=== PATIENT | female | born 1935 | race Caucasian/White ===

== ENCOUNTER 2016-07-08 15:59 | Inpatient (IN) ==
--- NOTE | 2016-07-08 17:34 | Emergency Department Note ---
Disposition Clinical Impression: Hx of chronic kidney disease Anemia Qualifiers: Anemia type: unspecified type Qualified Code(s): D64.9 - Anemia, unspecified Altered mental status Qualifiers: Altered mental status type: unspecified Qualified Code(s): R41.82 - Altered mental status, unspecified Disposition: Admitted As Inpatient Condition: Fair Referrals: Jose Olson MD [Primary Care Provider] - Forms: Work/School Release, ED Satisfaction Letter Time of Disposition: 19:39 General Adult HPI - General Chief complaint: ED General Medical Stated complaint: LOW HGB Time Seen by Provider: 07/08/16 17:33 Source: patient Mode of arrival: ambulatory Limitations: no limitations Nursing Notes Reviewed: Yes Vital Signs Reviewed: Yes - History of Present Illness HPI Narrative: Patient is an 81-year-old female past history of hyperlipidemia, hypertension, dementia, anemia, stage IV kidney disease and follows with Dr. Leung. She presents today due to hemoglobin of 5.3 that was drawn today. Son is with her ( medical POA) and states that the patient receives multiple transfusions usually every 2-3 weeks. She currently follows with Dr. Leung for stage IV kidney disease, does not currently have dialysis. He states that she usually gets out. Patient transfusions. However, he was unable to get in today and states that this is one of the lowest Hgb she has had in the past. The patient herself is confused on exam. Son states that she gets this way when her hemoglobin is very low. She is not able to answer the majority of the review of system questions I asked. She does deny chest pain, denies shortness of breath. She does admit to some lower extremity swelling. Otherwise, she will not answer any other questions and keeps stating that she wants to go home. Pain Scale: 0 - Related Data Home Medications Medication Instructions Recorded Confirmed Amlodipine [Norvasc] 10 mg PO DAILY 01/10/16 06/03/16 Fenofibrate 160 mg PO DAILY 01/10/16 06/03/16 Melatonin 5 mg PO HS 01/10/16 06/03/16 Cholecalciferol (Vitamin D3) 50,000 unit PO QWEEK 03/21/16 06/03/16 [Vitamin D] Ondansetron ODT [Zofran ODT] 4 mg SL Q8H 05/02/16 06/03/16 Previous Rx's Medication Instructions Recorded Folic Acid 1 mg PO DAILY #90 tablet 03/26/16 Cyanocobalamin (B-12) [Vitamin B12] 1,000 mcg PO DAILY #90 tablet 06/17/16 Allergies Allergy/AdvReac Type Severity Reaction Status Date / Time lorazepam [From Ativan] Allergy Hallucinati Verified 06/03/16 10:20 ng Limitations: ROS unobtainable due to patients medical condition Cardiovascular: Denies: chest pain Respiratory: Denies: dyspnea Past Medical History - Past Medical History Attestation: Yes The following information was validated with the patient. 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 history - Social History Smoking Status: Former smoker Smokeless Tobacco Status: No Alcohol use: Reports: none Drug use: Reports: none Physical Exam - General Limitations: no limitations General appearance: alert - Head Head exam: atraumatic, normocephalic, normal inspection - Eye Eye exam: Present: normal appearance, PERRL, EOMI - ENT ENT exam: normal exam, mucous membranes moist - Neck Neck exam: Present: normal inspection, full ROM, trachea midline - Chest Chest inspection: Present: normal inspection, symmetric chest wall rise - Respiratory Respiratory exam: Present: normal lung sounds bilaterally - Cardiovascular Cardiovascular exam: Present: regular rate, normal rhythm, normal heart sounds - Abdominal Exam Abdominal exam: Present: soft, Non-Tender. Absent: tenderness, distention, guarding, rebound, rigidity - Extremities Exam Extremities exam: Present: full ROM, pedal edema (moderate bilateral LE edema, pitting; moderate RUE edema). Absent: tenderness - Neurological Exam Neurological exam: Present: alert, oriented X3 - Psychiatric Psychiatric exam: Present: normal affect, normal mood - Skin Skin exam: Present: warm, dry, intact, normal color Course Course Narrative: Patient blood pressure on presentation was 70s over 50s. We will give the patient 1 L normal saline bolus. Otherwise, the rest of her vitals were within normal limits. Patient was pale on exam, altered, was not able to answer most questions. Her son is the power of cotton buyer has agreed to transfusion for a hemoglobin of 5.3. She had a CBC drawn today but did not have any BMP, UA done today. We will obtain these labs and then admitted to the hospital for further care. 19:29 Consent for transfusion signed by patient, will transfuse 3 units. patient refusing urinalysis. Creatinine are baseline for the patient. EKG shows sinus rhythm with no acute ST changes. We will admit the patient for blood transfusion, anemia. Vital Signs Temperature 97.9 F 07/08/16 16:01 Pulse Rate 79 07/08/16 16:01 Respiratory Rate 22 07/08/16 16:01 Blood Pressure 71/48 07/08/16 16:01 O2 Sat by Pulse Oximetry 99 07/08/16 16:01 Temperature 97.9 F 07/08/16 16:01 Pulse Rate 79 07/08/16 17:07 Respiratory Rate 22 07/08/16 17:07 Blood Pressure 71/48 07/08/16 17:07 O2 Sat by Pulse Oximetry 99 07/08/16 17:07 Oxygen Delivery Oxygen Delivery Room Air Medical Decision Making - MDM Narrative Medical decision making narrative: Patient blood pressure on presentation was 70s over 50s. We will give the patient 1 L normal saline bolus. Otherwise, the rest of her vitals were within normal limits. Patient was pale on exam, altered, was not able to answer most questions. Her son is the power of cotton buyer has agreed to transfusion for a hemoglobin of 5.3. She had a CBC drawn today but did not have any BMP, UA done today. We will obtain these labs and then admitted to the hospital for further care. 19:29 Consent for transfusion signed by patient, will transfuse 3 units. patient refusing urinalysis. Creatinine are baseline for the patient. EKG shows sinus rhythm with no acute ST changes. We will admit the patient for blood transfusion, anemia. - Medical Records Medical records reviewed: Yes I reviewed the patient's medical records. - Lab Data Lab results reviewed: Yes I reviewed the patient's lab results. Result diagrams: 07/08/16 18:02 Lab Results 07/08/16 07/08/16 Range/Units 18:02 18:02 Sodium 143 (136-145) mEq/L Potassium 3.7 (3.5-4.5) mEq/L Chloride 115 H (98-109) mEq/L Carbon Dioxide 20 (19-29) mEq/L BUN 53 H (7-20) mg/dL Creatinine 2.67 H (0.57-1.11) mg/dL Est GFR ( Amer) 21 L (> 60) Est GFR (Non-Af Amer) 17 L (> 60) BUN/Creatinine Ratio 20 (6-26) Glucose 112 H (70-99) mg/dL Calculated Osmolality 311 H (280-300) Calcium 8.3 L (8.6-10.8) mg/dL Blood Type O NEGATIVE Antibody Screen NEGATIVE Crossmatch See Detail - EKG Data EKG #1 EKG attestation: Yes I reviewed and interpreted this EKG. EKG results narrative: 07/08/16 at 18:26. Normal sinus rhythm. Rate 82. AR 134. QRS 92. QTC 389. Normal axis. No acute ST elevation or depression. S.B.A.R. - S.B.A.R. Situation: Demographics, MOA Background: Presenting Complaint, Relevant PMH, Meds, & Allergies Assessment: Vital Signs, Course and respsone to treatment, Exam Concerns, Patient/Family Expectation, Pertinant Lab Results, Outstanding Labs Recommendation: Barrier(s) to disposition, Recommendation based on pending studies, treatments, or consults S.B.A.R. Report Given to: Dr Miller SAdiliaBAdiliaAJoselyn Repor Time: 19:39 Attestation Statement - Attestation Attestation: I examined this patient and my medical decision-making was reviewed with the ENGINEERING AID/PA/Advanced Practice Nurse/Resident Physician. I agree with the documented findings, disposition and treatment plan as described except to the extent set forth below.
[2016-07-08] MEDS ORDERED: 0.9 % Sodium Chloride 1,000 ML IVC ONE (17:59)
[2016-07-08 18:31] LABS: Calcium 8.3 mg/dL (8.6-10.8)
[2016-07-08 18:49] LABS: Potassium 3.7 mEq/L (3.5-4.5)
[2016-07-08] MEDS ORDERED: 0.9 % Sodium Chloride 250 ML ONE (20:12)
[2016-07-08] MEDS ORDERED: Naloxone 0.4 MG/ML INJ IVP PRN (21:10)
[2016-07-08] MEDS ORDERED: Ondansetron 4 MG/2 ML VIAL IVP PRN (21:12)
--- NOTE | 2016-07-08 23:25 | Internal Med History&Physical ---
Date of Encounter: 07/08/16 Time of Encounter: 22:50 Assessment and Plan (1) Symptomatic anemia Current visit: Yes Status: Acute patient with a history of iron deficiency anemia of unexplained etiology presumed to be from CKD, she has not had a recent colonoscopy per son, her daughter had colon cancer in her 50's, patient is being planned for a colonoscopy per son, she comes in with significant anemia with symptoms, we will transfuse 2 units of PRBC and follow blood counts and symptoms, target Hb is 7 in the absence of symptoms, should symptoms persist at a Hb of 7, we will transfuse one more unit (2) Hx of chronic kidney disease Current visit: Yes Status: Chronic stage 4 associated with anemia of chronic disease, 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, we will avoid nephrotoxins, renally dose all medications and follow BMP (3) HTN (hypertension) Current visit: Yes Status: Chronic on amlodipine at home, we will continue that Qualifiers: Hypertension type: essential hypertension Qualified Code(s): I10 - Essential (primary) hypertension (4) Dependent edema Current visit: Yes Status: Chronic patient has had significant history of anemia, she has recently developed dependent edema, this could be related to high output heart failure vs hypoalbuminemia vs CKD, we will check serum and urine proteins, 2D echo for further evaluation, will also do low dose lasix (5) Delirium Current visit: Yes Status: Acute patient is an elderly female, with multiple comorbidities who is also herd of hearing and reported to have dementia, these places her at risk for delirium, she was confused and agitated this evening when her son left, we will place her on the delirium protocol, sitter also ordered for safety Internal Medicine - H&P: HPI Chief complaint: sent here for abnormal blood counts Admitted From: Emergency Dept Plans for Post Hospital Care: Home History of present illness: Ms. Otoole is a 81 year old female with a long-standing history of stage IV CKD that is followed by Dr. Koroma and has a pre-existing diagnosis of anemia of CKD for which she has required multiple transfusions of PRBC to maintain her blood counts. Prior investigations has not yielded any clear culprit for her anemia with the exception of her CKD. Her last blood transfusion per son was about 3-4 weeks ago. She usually gets 2-3 PRBC's every 2 weeks and was in the office today to get her Aranesp injection but her blood counts at the time showed a Hb of 5.3 so she was sent to the ER for blood transfusion. She also complains of easy fatigability, dyspnea and dyspnea on exertion as well as reduced exercise tolerance, fatigue and lightheadedness. Past Medical History CKD stage 4 HTN DEPRESSION SMOKER KIDNEY STONES Surgical History VASCULAR SURGERY lung surgery for lung collapse/[place] Family History Father: Mother: Social history: Tobacco: Past smoker. 65 pack years. Quit one year ago. Alcohol:None Recreational drugs:None Marital Status: Occupation:Retired Living situation: Home with daughter. son is the POA and reports that patient is full code Past Med Surg Social Fam HX - Past Medical History Medical history: hyperlipidemia, hypertension, renal disease, other Psychiatric history: anxiety, depression - Social History Smoking Status: Former smoker Smokeless Tobacco Status: No Alcohol use: none Drug use: none - Family History Mother History Unknown: Yes Hx Family Cardiac Disorders: Yes Internal Medicine - H&P: Meds Amlodipine [Norvasc] 10 mg PO DAILY 01/10/16 [History] Fenofibrate 160 mg PO DAILY 01/10/16 [History] Melatonin 5 mg PO HS 01/10/16 [History] Cholecalciferol (Vitamin D3) [Vitamin D] 50,000 unit PO QWEEK 03/21/16 [History] Folic Acid 1 mg PO DAILY #90 tablet 03/26/16 [Rx] Ondansetron ODT [Zofran ODT] 4 mg SL Q8H PRN 05/02/16 [History] Cyanocobalamin (B-12) [Vitamin B12] 1,000 mcg PO DAILY #90 tablet 06/17/16 [Rx] Darbepoetin Christopher in Polysorbat [Aranesp] 200 mcg IJ Q2W 07/08/16 [History] Docusate [Colace] 100 mg PO DAILY PRN 07/08/16 [History] Mirtazapine [Mirtazapine] 7.5 mg PO HS 07/08/16 [History] Allergies lorazepam [From Ativan] Allergy (Verified 06/03/16 10:20) Hallucinating All Systems PM: A 10-system review of systems was performed and is negative for pertinent findings except as documented above in the HPI. - Constitutional Constitutional: as per HPI - EENT Eyes: as per HPI Ears: as per HPI Nose, mouth and throat: as per HPI - Cardiovascular Cardiovascular ROS IM: as per HPI - Respiratory Respiratory: as per HPI - Gastrointestinal Gastrointestinal: as per HPI - Genitourinary Genitourinary: as per HPI - Musculoskeletal Musculoskeletal ROS IM: as per HPI - Integumentary Integumentary IM: as per HPI - Constitutional Vitals: Temp Pulse Resp BP Pulse Ox 97.7 F 85 16 136/82 96 07/08/16 20:40 07/08/16 21:25 07/08/16 22:00 07/08/16 22:00 07/08/16 21:25 General General appearance: Elderly female, lying in bed, hard of hearing, seems confused, - Head Head exam: atraumatic, normocephalic, normal inspection - HEENT ENT exam: significant pallor of the conjunctiva, PERRL, EOMI, anicteric sclera, hard of hearing, mucous membranes moist - Respiratory Respiratory exam: normal lung sounds bilaterally, bibasal crackles bilaterally, - Cardiovascular Cardiovascular exam: regular rate, normal rhythm, normal heart sounds, systolic murmur, bipedal pitting edema of the lower extremities with interval improvement-wrinkles noted - Abdominal Exam Abdominal exam: soft, Non-Tender. Absent: tenderness, distention, guarding, rebound, rigidity - Extremities Exam Extremities exam: full ROM, edema of the dependent portions of her right upper extremity, bipedal edema - Neurological Exam Neurological exam: alert, oriented X2, grossly non focal motor or sensory exam - Psychiatric Psychiatric exam: Present: normal affect, normal mood - Skin Skin exam: Present: warm, dry, intact, normal color Internal Med - H&P Results - Labs CBC & Chem 7: 07/08/16 18:02 - EKG Data -: EKG Interpreted by Myself EKG shows normal: sinus rhythm - EKG Data Prior EKG available for review: yes When compared to previous EKG: there are significant changes (old EKG had TWI in the inferior and lateral leads, absent in the new EKG)
[2016-07-08] MEDS ORDERED: Haloperidol Lactate 5 MG/ML VIAL IVP PRN (23:27)
[2016-07-09] MEDS: Melatonin 3 MG TABLET PO SCH ×3 (00:10→20:32)
[2016-07-09] MEDS: Mirtazapine 15 MG TABLET PO SCH ×3 (00:10→20:32)
[2016-07-09] MEDS ORDERED: 0.9 % Sodium Chloride 250 ML ONE (02:28)
[2016-07-09] MEDS ORDERED: Furosemide 40 MG/4 ML VIAL IVP STA (06:16)
[2016-07-09 06:25] LABS: Albumin 2.2 g/dL (3.5-5.0); Albumin/Globulin Ratio 1.3 (1.1-2.2); Bilirubin,Total 1.4 mg/dL (0.2-1.2); Calcium 8.1 mg/dL (8.6-10.8); Globulin 1.7 g/dL (2.4-3.5); Magnesium 1.6 mg/dL (1.6-2.6); Phosphorous 4.6 mg/dL (2.3-4.7); Potassium 3.6 mEq/L (3.5-4.5); Total Protein 3.9 g/dL (6.0-8.3)
[2016-07-09 07:11] LABS: Basophils % 0.6 %; Eosinophils % 0.4 %; Hematocrit 24.1 % (35.3-44.9); Hemoglobin 7.6 g/dL (11.5-15.4); Immature Granulocytes % 0.8 % (0-4); Immature Platelets 3.9 % (1.1-6.1); Lymphocytes # 0.7 K/mcL (0.6-4.6); Lymphocytes % 13.1 %; Mean Corpuscular HGB Conc 31.5 g/dL (31.6-35.5); Mean Corpuscular Hemoglobin 33.9 pg (28.0-33.3); Mean Corpuscular Volume 107.6 fL (83.0-100.0); Mean Platelet Volume 10.3 fL (9.4-12.4); Monocytes # 0.4 K/mcL (0.0-1.3); Monocytes % 8.5 %; Platelet Count 201 K/mcL (140-400); Red Blood Count 2.24 M/mcL (3.82-4.97); Red Cell Distribution Width 22.9 % (11.5-14.5); Segmented Neutrophils % 76.6 %
[2016-07-09] MEDS: Folic Acid 1 MG TABLET PO SCH (08:34)
[2016-07-09] MEDS: Cyanocobalamin (B-12) 1,000 MCG TABLET PO SCH (08:35)
[2016-07-09] MEDS: Fenofibrate 54 MG TABLET PO SCH (08:35)
[2016-07-09] MEDS ORDERED: amLODIPine 5 MG TABLET PO SCH (09:00)
[2016-07-09] MEDS ORDERED: Folic Acid 1 MG TABLET PO SCH (09:00)
[2016-07-09] MEDS ORDERED: Thiamine (B-1) 100 MG TABLET PO SCH (09:00)
[2016-07-09] MEDS ORDERED: Vitamin B Complex/Vit C/Vit E 1 EACH TABLET PO SCH (09:00)
[2016-07-09] MEDS ORDERED: Furosemide 40 MG/4 ML VIAL IVP SCH (09:30)
--- NOTE | 2016-07-09 12:16 | ECHO - Doppler Report ---
Echocardiogram Name: Fina Otoole Date of Study: 07/09/2016 Date: 1935 Ht: 67.0 in Medical Record#: [id number] Age: 81 Wt: 158.0 lb Gender: Female BSA: 1.83 Order #: [id number] Location: [facility] Room #: 2A22 Reading Physician: Ila Art DO Stitch Marker: JOHNNY DeeT, [facility] Ordering Physician: Tien Myers MD Primary Physician: Jose Olson MD Indications: Evaluate EF and valves Impressions: LVEF 65%. Increased LV wall thickness. There is evidence of moderate diastolic dysfunction of the left ventricle. Normal right ventricular size and function. Moderate-severe aortic stenosis. Mild pulmonary hypertension. Left Ventricular Wall Motion: Rest Echo Findings The mid anterior septal, mid inferior lateral, basal anterior septal and basal inferior lateral hudson were not visualized. All other wall segments showed normal motion. Findings: Study Quality * Technically sub-optimal due to poor echocardiographic windows. Poor PLAX, PSAX windows. ECG Findings * Normal sinus rhythm. Tricuspid Valve * Tricuspid valve not well visualized. * Trace tricuspid regurgitation, probably underestimated. * Estimated RA pressure is 3 mmHg. * Estimated RVSP is 43 mmHg. * Mild pulmonary hypertension. Pulmonic Valve * Pulmonic valve is not well visualized. * No pulmonic stenosis. * No pulmonic regurgitation. Aortic Valve * Aortic valve not well visualized. * No aortic regurgitation. * Moderate-severe aortic stenosis. PV 4m/s, MG 35 mmHg, DI 0.32, GAIL 1.0cm2 Mitral Valve * Mild to moderate mitral annular calcification * Normal mitral valve structure. * No mitral stenosis. * Trace mitral regurgitation. Right Ventricle * Normal right ventricular structure and function. Left Atrium * Moderately dilated left atrium. Right Atrium * Normal right atrial size. Left Ventricle * Moderate left ventricular diastolic dysfunction. * Suboptimal PLAX to measure LV wall thickness. Visually it appears increased. * LVEF 65%. * Normal LV size. Pulmonary Artery * Pulmonary artery not well visualized. Pericardium * There is no pericardial effusion present. Aorta * Not well visualized. IVC * Normal IVC dimensions and inspiratory collapse. Interatrial Septum * Interatrial septum not well evaluated. History Hypertension Hypercholesteremia Family History of CAD Measurements: BP: 175/ 74 2D Normal Values RVIDd: 3.00 cm <2.7 cm IVSd: 1.60 cm 0.6 - 1.0 cm LVIDd: 4.20 cm 3.7 - 5.6 cm LVPWd: 1.30 cm 0.6 - 1.1 cm LVIDs: 3.30 cm 1.5 - 3.6 cm AO: 2.50 cm < 4.0 cm LA: 4.60 cm 2.0 - 4.0cm %FS: 21.40 cm >25 % LVOT Diam: 1.90 cm LA volume: 53 Mitral Valve Dec Time:176.00 msec Peak E:1.63 m/sec Peak A:1.29 m/sec E/A Ratio:1.3 Peak E' Lat Gene:8.19 cm/s Peak E' Med Gene:4.97 cm/s E/E' Lat Ratio:19.9 E/E' Med Ratio:32.8 LVOT Peak Gene:1.12 m/sec Mean Gene:.77 m/sec Peak Grad:5.00 mmHg Mean Grad:3.00 mmHg Aortic Valve Peak Gene:4.19 m/sec Mean Gene:2.96 m/sec Peak Grad:70.00 mmHg Mean Grad:40.00 mmHg Valve Area:.78 cm2 Tricuspid Valve TV Regurg Peak Grad: 40.00mmHg TV Regurg Peak Gene: 3.16m/sec Pulmonic Valve Peak Gene:2.79m/sec Mean Gene:1.81m/sec Peak Grad:31.00mmHg Mean Grad:15.00mmHg Updated by Ila Art on 07/09/2016 12:08:11 PM electronically signed on 07/09/2016 12:11:20 PM with status of Final Wall Motion Garcia: 1=Normal, 2=Hypokinesis, 3=Akinesis, 4=Dyskinesis, 5=Aneurysmal, 6=Hyperkinetic, X=Not Visualized (Blank)=Missing
[2016-07-09] MEDS ORDERED: Haloperidol Lactate 5 MG/ML VIAL IM PRN (13:04)
--- NOTE | 2016-07-09 13:06 | Internal Med Progress Note ---
Date of Encounter: 07/09/16 Time of Encounter: 13:03 - Assessment and plan (1) Symptomatic anemia Current Visit: Yes Status: Acute Assessment and plan: s/p 2 unit PRBC transfusion Repeat H&H within acceptable range will restart patients home dose of Aranesp (as per [employer] Gr[employer]'s records, she receives this every two weeks and is due for a dose this week) Will closely monitor H&H PT eval d/c planning, if remains stable overnight, likely d/c in am (2) Altered mental status Current Visit: Yes Status: Acute Assessment and plan: Unclear of patient's baseline mental status she is alert but pleasantly confused Awaiting communication with family in regards to patient's baseline and establish further goals of care Will continue to closely monitor Haldol 1mg IM q6h prn severe agitation Qualifiers: Altered mental status type: unspecified Qualified Code(s): R41.82 - Altered mental status, unspecified (3) CHF (congestive heart failure) Current Visit: Yes Status: Acute Assessment and plan: 2D echo reported of LVEF of 65% with increased LV wall thickness. Moderate Diastolic dysfunction of the LV, Moderate to severe aortic stenosis, mild pulmonary hypertension Given CKD, will start with low dose Lasix upon discharge, however patient responding appropriately to IV lasix she received in ER, will continue Renal function at baseline, will continue to monitor Cardiology eval requested for newly diagnosed CHF Repeat BP noted to be: 80/60, will closely monitor and initiate BB as BP tolerates Qualifiers: Congestive heart failure type: diastolic Congestive heart failure chronicity: unspecified congestive heart failure chronicity Qualified Code(s) : I50.30 - Unspecified diastolic (congestive) heart failure (4) Hx of chronic kidney disease Current Visit: Yes Status: Chronic Assessment and plan: renal function at baseline will continue to monitor (5) HTN (hypertension) Current Visit: Yes Status: Chronic Assessment and plan: Repeat BP 80/60, clinically asymptomatic will closely monitor Qualifiers: Hypertension type: essential hypertension Qualified Code(s): I10 - Essential (primary) hypertension (6) DVT prophylaxis Current Visit: Yes Status: Acute Assessment and plan: IPCD - Subjective Interval history: Patient seen and examined at bedside. Resting in bed. Patient is pleasantly confused and only oriented to self. Unclear of what patient's baseline mental status is, and I have been unable to get in touch with her family after multiple attempts to call them. - Constitutional Vitals: Temp Pulse Resp BP Pulse Ox 97.7 F 85 16 175/74 94 07/09/16 07:17 07/09/16 07:17 07/09/16 07:17 07/09/16 07:17 07/09/16 08:51 General appearance: Present: A&O X 1, no acute distress, answers questions appropriately - Head Head exam: Present: atraumatic, normocephalic - Respiratory Respiratory exam: Present: CTAB. Absent: accessory muscle use, rales, rhonchi, wheezes - Cardiovascular Cardiovascular exam: Present: RRR, +S1, +S2. Absent: diastolic murmur, gallop, rubs, systolic murmur - GI/Abdominal GI/Abdominal exam: Present: normal bowel sounds, soft, no peritoneal signs. Absent: distended, tenderness - Extremities Exam Extremities exam: Present: pedal edema (bilateral lower extremity edema-2+ pitting edema ) - Neurological Exam Neurological exam: Present: alert - Psychiatric Psychiatric exam: Present: normal affect, normal mood Internal Medicine: Result - Labs CBC & Chem 7: 07/09/16 07:04 07/09/16 05:58 Labs: Short CBC 07/09/16 Range/Units 07:04 WBC 5.2 (4.3-11.1) K/mcL Hgb 7.6 L D (11.5-15.4) g/dL Hct 24.1 L (35.3-44.9) % Plt Count 201 (140-400) K/mcL Neutrophils # 4.0 (1.6-8.9) K/mcL BMP 07/09/16 05:58 Sodium 143 Potassium 3.6 Chloride 117 H Carbon Dioxide 20 BUN 50 H Creatinine 2.47 H Glucose 74 Calcium 8.1 L Liver Function 07/09/16 Range/Units 05:58 Total Bilirubin 1.4 H (0.2-1.2) mg/dL AST 16 (5-34) Units/L ALT 7 (0-55) Units/L Alkaline Phosphatase 39 (38-126) Units/L Albumin 2.2 L (3.5-5.0) g/dL Consult Discharge Plan - Plan Referrals: Jose Olson MD [Primary Care Provider] - 05/03/17 10:45 am (Please follow up as schedule...)
--- NOTE | 2016-07-09 17:14 | Electrocardiograph Report ---
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
[2016-07-10 05:33] LABS: Basophils % 0.7 %; Eosinophils % 0.7 %; Hematocrit 24.9 % (35.3-44.9); Hemoglobin 7.9 g/dL (11.5-15.4); Immature Granulocytes % 0.5 % (0-4); Lymphocytes # 0.6 K/mcL (0.6-4.6); Lymphocytes % 13.7 %; Mean Corpuscular HGB Conc 31.7 g/dL (31.6-35.5); Mean Corpuscular Hemoglobin 34.2 pg (28.0-33.3); Mean Corpuscular Volume 107.8 fL (83.0-100.0); Mean Platelet Volume 10.6 fL (9.4-12.4); Monocytes # 0.4 K/mcL (0.0-1.3); Monocytes % 9.2 %; Neutrophils # 3.2 K/mcL (1.6-8.9); Platelet Count 198 K/mcL (140-400); Red Blood Count 2.31 M/mcL (3.82-4.97); Red Cell Distribution Width 23.2 % (11.5-14.5); Segmented Neutrophils % 75.2 %
[2016-07-10 05:45] LABS: Calcium 8.2 mg/dL (8.6-10.8); Magnesium 1.8 mg/dL (1.6-2.6); Phosphorous 4.4 mg/dL (2.3-4.7); Potassium 3.3 mEq/L (3.5-4.5)
[2016-07-10 06:19] LABS: Anisocytosis 2+ (Not Present); Polychromasia 1+ (Not Present)
[2016-07-10 06:20] LABS: Platelet Estimate Normal (Normal); Poikilocytosis 1+ (Not Present)
[2016-07-10] MEDS ORDERED: 0.9 % Sodium Chloride 250 ML ONE (10:41)
[2016-07-10] MEDS: Cyanocobalamin (B-12) 1,000 MCG TABLET PO SCH (10:47)
[2016-07-10] MEDS: Folic Acid 1 MG TABLET PO SCH (10:47)
[2016-07-10] MEDS: Fenofibrate 54 MG TABLET PO SCH (10:47)
[2016-07-10] MEDS: amLODIPine 5 MG TABLET PO SCH (10:47)
[2016-07-10] MEDS: Furosemide 20 MG TABLET PO SCH ×2 (10:47→16:08)
--- NOTE | 2016-07-10 11:04 | Internal Med Progress Note ---
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, she receives this every two weeks and is due for a dose this week) Will closely monitor H&H PT eval pending d/c planning Still awaiting contact with family in regards to discharge planning and baseline mental status (2) Altered mental status Current Visit: Yes Status: Acute Assessment and plan: Unclear of patient's baseline mental status she is alert but pleasantly confused Awaiting communication with family in regards to patient's baseline and establish further goals of care Will continue to closely monitor Qualifiers: Altered mental status type: unspecified Qualified Code(s): R41.82 - Altered mental status, unspecified (3) CHF (congestive heart failure) Current Visit: Yes Status: Acute Assessment and plan: 2D echo reported of LVEF of 65% with increased LV wall thickness. Moderate Diastolic dysfunction of the LV, Moderate to severe aortic stenosis, mild pulmonary hypertension Given CKD, will continue low dose Lasix Renal function at baseline, will continue to monito Awaiting Cardiology eval for newly diagnosed CHF Qualifiers: Congestive heart failure type: diastolic Congestive heart failure chronicity: unspecified congestive heart failure chronicity Qualified Code(s) : I50.30 - Unspecified diastolic (congestive) heart failure (4) Hx of chronic kidney disease Current Visit: Yes Status: Chronic Assessment and plan: renal function at baseline will continue to monitor (5) HTN (hypertension) Current Visit: Yes Status: Chronic Assessment and plan: Repeat BP 140/80 will closely monitor Qualifiers: Hypertension type: essential hypertension Qualified Code(s): I10 - Essential (primary) hypertension (6) DVT prophylaxis Current Visit: Yes Status: Acute Assessment and plan: IPCD (7) Edema of right lower extremity Current Visit: Yes Status: Acute Assessment and plan: will obtain venous doppler to rule out DVT - Subjective Interval history: Patient seen and examined at bedside. Noted to be more lethargic today however able to communicate and denies any discomfort. Repeat Manual BP reading reported of 140/80 - Constitutional Vitals: Temp Pulse Resp BP Pulse Ox 97.9 F 74 16 82/52 92 07/10/16 04:19 07/10/16 04:19 07/10/16 04:19 07/10/16 04:19 07/10/16 04:19 General appearance: Present: A&O X 1, no acute distress, answers questions appropriately - Head Head exam: Present: atraumatic, normocephalic - Eye Eye exam: Present: normal appearance, conjuntiva pink, sclera anicteric - Respiratory Respiratory exam: Present: CTAB. Absent: accessory muscle use, rales, rhonchi, wheezes - Cardiovascular Cardiovascular exam: Present: RRR, +S1, +S2. Absent: diastolic murmur, gallop, rubs, systolic murmur - GI/Abdominal GI/Abdominal exam: Present: normal bowel sounds, soft, no peritoneal signs. Absent: distended, tenderness - Extremities Exam Extremities exam: Present: warm, radial pulses palpable and symetrical Additional comments: RLE edema and calf tenderness LLE edema - Neurological Exam Neurological exam: Present: alert - Psychiatric Psychiatric exam: Present: normal affect, normal mood Internal Medicine: Result - Labs CBC & Chem 7: 07/10/16 05:02 07/10/16 05:02 Labs: Short CBC 07/10/16 Range/Units 05:02 WBC 4.2 L (4.3-11.1) K/mcL Hgb 7.9 L (11.5-15.4) g/dL Hct 24.9 L (35.3-44.9) % Plt Count 198 (140-400) K/mcL Neutrophils # 3.2 (1.6-8.9) K/mcL BMP 07/10/16 05:02 Sodium 143 Potassium 3.3 L Chloride 115 H Carbon Dioxide 21 BUN 49 H Creatinine 2.57 H Glucose 70 Calcium 8.2 L - VTE Documentation of Mechanical Device: Intermittent pneumatic compression device Consult Discharge Plan - Plan Referrals: Jose Olson MD [Primary Care Provider] - 07/17/16 10:45 am (Please follow up as schedule...)
--- NOTE | 2016-07-10 13:09 | Cardiology Consult Note ---
Date of Encounter: 07/10/16 Time of Encounter: 13:05 Assessment and Plan (1) Severe aortic stenosis Current Visit: Yes Status: Acute Gradients on echo consistent with severe . PV 4.19m/s, MG 40mmHg, GAIL 0.78cm2. No further inpt work-up is necessary. Dyspnea on exertion on admission secondary to profound anemia with HGB 5.3--now improved. Denies synope, but confused. Recommend outpt follow-up. Given advanced age and other comorbidities, would be a poor surgical candidate, but could consider TAVR evaluation as outpt at tertiary facility pending clinical course and pt wishes. Cardiology is signing off. Reconsult PRN. Follow-up as outpt in 2-3 weeks. (2) Diastolic dysfunction Current Visit: Yes Status: Acute Moderate diastolic dysfunction on echo. EF preserved 65%. RLE edema--doppler ordered by primary team. Hypoalbuminemia as well. Do not suspect this is a primary CHF exacerbation. Continue home dose of Lasix. (3) Symptomatic anemia Current Visit: Yes Status: Acute Management per primary team. (4) Edema of right lower extremity Current Visit: Yes Status: Acute Doppler ordered to rule out DVT per primary service. (5) PAC (premature atrial contraction) Current Visit: Yes Status: Acute Telemetry and EKGs reviewed--appears to be SR with PACs, not A-Fib. Regardless, pt would be poor candidate for anticoagulation given recurrent anemia. Could consider low dose BB if BP tolerates. Most recent BP 80s systolic. (6) Elevated troponin Current Visit: Yes Status: Acute Troponins 0.05 x 2 in setting of CKD stage 4 and acute anemia. Demand ischemia, nondiagnostic for ACS. Pt denies chest pain. EF preserved on echo. Discussion w patient/family: The assessment and plan as outlined above was discussed with the patient and/or family members who expressed understanding and agreement. All questions were answered. Thank you for involving us in the care of your patient. Please call with any questions. I will discuss all the above with Dr. Arriaza and make changes as necessary. History of Present Illness Consult date: 07/10/16 Requesting physician: Nona Sanches Consult reason: Moderate-severe , Troponin elevation, CHF Chief complaint: dyspnea, fatigue History of present illness: Ms. Otoole is a 81 year old female with a long-standing history of stage IV CKD that is followed by Dr. Koroma and has a pre-existing diagnosis of anemia of CKD for which she has required multiple transfusions of PRBC to maintain her blood counts. HPI obtained from records due to pt's mental status. Per records, she usually gets 2-3 PRBC's every 2 weeks and was in the office to get her Aranesp injection but she was found to have a HGB of 5.3 and sent to the ER for blood transfusions. She reportedly complained of easy fatigability, dyspnea and dyspnea on exertion as well as reduced exercise tolerance, fatigue and lightheadedness. Upon questioning, pt reports feeling better today. She denies chest pain. Echo was obtained, showed preserved EF of 65%, moderate diastolic dysfunction, moderate-severe . Mild phtn. HGB now 7.9. EKG on admission showed SR with PACs. Troponins 0.05, 0.05. Past Med Surg Social Fam HX - Past Medical History Medical history: hyperlipidemia, hypertension, renal disease, other Psychiatric history: anxiety, depression - Social History Smoking Status: Former smoker Smokeless Tobacco Status: No Alcohol use: none Drug use: none - Family History Mother History Unknown: Yes Hx Family Cardiac Disorders: Yes Medications and Allergies Amlodipine [Norvasc] 10 mg PO DAILY 01/10/16 [History] Fenofibrate 160 mg PO DAILY 01/10/16 [History] Melatonin 5 mg PO HS 01/10/16 [History] Cholecalciferol (Vitamin D3) [Vitamin D] 50,000 unit PO QWEEK 03/21/16 [History] Folic Acid 1 mg PO DAILY #90 tablet 03/26/16 [Rx] Ondansetron ODT [Zofran ODT] 4 mg SL Q8H PRN 05/02/16 [History] Cyanocobalamin (B-12) [Vitamin B12] 1,000 mcg PO DAILY #90 tablet 06/17/16 [Rx] Darbepoetin Christopher in Polysorbat [Aranesp] 200 mcg IJ Q2W 07/08/16 [History] Docusate [Colace] 100 mg PO DAILY PRN 07/08/16 [History] Mirtazapine [Mirtazapine] 7.5 mg PO HS 07/08/16 [History] Allergies lorazepam [From Ativan] Allergy (Verified 06/03/16 10:20) Hallucinating All Systems Review: A 10-system review of systems was performed and is negative for pertinent findings except as documented above in the HPI. - Constitutional Constitutional: fatigue - Cardiovascular Cardiovascular: as per HPI, dyspnea on exertion, lightheadedness - Respiratory Respiratory: dyspnea Physical Examination Vital Signs Temp Pulse Resp BP Pulse Ox 07/10/16 04:19 97.9 F 74 16 82/52 92 07/09/16 18:46 98.0 F 80 20 147/57 96 07/09/16 15:27 97.7 F 79 16 150/65 96 Intake and Output 07/09/16 07/10/16 07/10/16 23:59 07:59 15:59 Other: # Voids 1 Weight 63.276 kg Patient Weight 07/10/16 23:59 Weight 63.276 kg General: Conversant, No Apparent Distress HEENT: Atraumatic, Normocephaly, Mucus Membranes Moist Neck: Normal carotid pulses Cardiac: Reg Rate and Rhythm, Normal S1 and S2, Other (2/6 ARSLAN) Lungs: Other (diminished) Neuro: Alert and responsive, No focal deficits noted Abdomen: Soft, Non-Tender Skin: No rashes noted on visualized skin Musculoskeletal: No Chest Wall Tenderness Extremities: Other (RLE edema noted) Results 07/10/16 05:02 07/10/16 05:02 Lab Results 07/10/16 07/10/16 05:02 05:02 WBC 4.2 L Hgb 7.9 L Hct 24.9 L Plt Count 198 Sodium 143 Potassium 3.3 L Chloride 115 H Carbon Dioxide 21 BUN 49 H Creatinine 2.57 H Glucose 70 Calcium 8.2 L Magnesium 1.8 Short CBC 07/10/16 Range/Units 05:02 WBC 4.2 L (4.3-11.1) K/mcL Hgb 7.9 L (11.5-15.4) g/dL Hct 24.9 L (35.3-44.9) % Plt Count 198 (140-400) K/mcL Neutrophils # 3.2 (1.6-8.9) K/mcL BMP 07/10/16 Range/Units 05:02 Sodium 143 (136-145) mEq/L Potassium 3.3 L (3.5-4.5) mEq/L Chloride 115 H (98-109) mEq/L Carbon Dioxide 21 (19-29) mEq/L BUN 49 H (7-20) mg/dL Creatinine 2.57 H (0.57-1.11) mg/dL Glucose 70 (70-99) mg/dL Calcium 8.2 L (8.6-10.8) mg/dL Active Medications Amlodipine Besylate (Norvasc) 10 mg PO DAILY VIKRAM PRN Reason: Protocol Stop: 01/08/17 09:01 Last Admin: 07/10/16 10:47 Dose: 10 mg Cyanocobalamin (Vitamin B12) 1,000 mcg PO DAILY VIKRAM Stop: 01/08/17 09:01 Last Admin: 07/10/16 10:47 Dose: 1,000 mcg Darbepoetin Christopher (Aranesp) 200 mcg SQ Q2W VIKRAM PRN Reason: Protocol Stop: 01/08/17 14:31 Last Admin: 07/09/16 15:31 Dose: 200 mcg Docusate Sodium (Colace) 100 mg PO DAILY PRN; Protocol PRN Reason: Constipation Stop: 01/07/17 21:11 Fenofibrate (Tricor) 162 mg PO DAILY VIKRAM Stop: 01/08/17 09:01 Last Admin: 07/10/16 10:47 Dose: 162 mg Folic Acid (Folic Acid) 1 mg PO DAILY VIKRAM Stop: 01/08/17 09:01 Last Admin: 07/10/16 10:47 Dose: 1 mg Furosemide (Lasix) 20 mg PO BIDDIURETIC VIKRAM Stop: 01/09/17 08:01 Last Admin: 07/10/16 10:47 Dose: 20 mg Melatonin (Melatonin) 6 mg PO HS VIKRAM Stop: 01/07/17 21:16 Last Admin: 07/09/16 20:32 Dose: 6 mg Mirtazapine (Remeron) 7.5 mg PO HS VIKRAM Stop: 01/07/17 21:16 Last Admin: 07/09/16 20:32 Dose: 7.5 mg Naloxone HCl (Narcan) 0.4 mg IVP Q2MIN PRN PRN Reason: Opioid Reversal Stop: 01/07/17 21:11 Ondansetron HCl (Zofran) 4 mg IVP Q6HR PRN; Protocol PRN Reason: nausea and vomiting Stop: 01/08/17 00:01 - Imaging and Cardiology Echo: report reviewed - EKG Interpretation EKG results cardiology: other (24 hour tele AVG HR 78, SR PACs) Consult Discharge Plan - Plan Referrals: Jose Olson MD [Primary Care Provider] - 07/17/16 10:45 am (Please follow up as schedule...)
--- NOTE | 2016-07-10 18:06 | Electrocardiograph Report ---
[address] [place] [address] Test Date: 2016-07-09 Pat Name: Fina Otoole Department: 112 Room: 2A22 Gender: F Account Resolution Analyst: : 1935 Requested By: Finn Zavala Order Number: [id number] Reading MD: Adan Mcwilliams MD Measurements Intervals [place] Rate: 89 P: [place]: 0 QRS: 55 QRSD: 88 T: 93 QT: 414 QTc: 460 Interpretive Statements ATRIAL FIBRILLATION Electronically Signed On 07-10-2016 18:04:28 EDT by Adan Mcwilliams MD
--- NOTE | 2016-07-10 18:54 | Venous Imaging Report ---
LE Venous Duplex Patient Name:Fina Otoole Order Number:[id number] Procedure Date:07/10/2016 Date:6Age:81 yrs Gender:Female Location:[facility] Room #: 2A22 Computerized Mill Recorder:Yissel Alaniz Referring MD:Nona Sanches MD design project manager:Jose Olson MD Reading MD:Myles Tam MD Primary Indications:r/o DVT Secondary Indications: Risk Factors Yes/No Hx of DVT Impressions: Normal right lower extremity deep and superficial venous exam. Normal contralateral common femoral vein. Findings Prior Study: No prior study available for comparison. Lower Extremity Venous Duplex Side Vein Compress Spontaneous Flow Augment Diameter (cm) Depth (cm) Right Distal Iliac Normal Yes Phasic Yes Right Common Femoral Normal Yes Phasic Yes Right Superficial Femoral Normal Yes Phasic Yes Right Popliteal Normal Yes Phasic Yes Right Posterior Tibial Normal Yes Phasic Yes Right Peroneal Normal Yes Phasic Yes Right Saphenofemoral Junction Normal Yes Phasic Yes Right Great Saphenous Normal Yes Phasic Yes Right Lesser Saphenous Normal Yes Phasic Yes Left Common Femoral Normal Yes Phasic Yes Updated by Myles Tam MD on 07/10/2016 6:48:42 PM electronically signed on 07/10/2016 6:49:00 PM with status of Final
[2016-07-11 03:05] LABS: Creatinine,Urine 24 mg/dL; Protein/Creatinine Ratio,Urine 0.29 mg/mg (0-0.20)
[2016-07-11] MEDS: Melatonin 3 MG TABLET PO SCH (03:27)
[2016-07-11] MEDS: Mirtazapine 15 MG TABLET PO SCH (03:27)
[2016-07-11 05:53] LABS: Calcium 8.2 mg/dL (8.6-10.8); Magnesium 1.4 mg/dL (1.6-2.6); Phosphorous 4.1 mg/dL (2.3-4.7); Potassium 3.6 mEq/L (3.5-4.5)
[2016-07-11 05:59] LABS: Basophils % 0.6 %; Eosinophils % 0.9 %; Hematocrit 25.3 % (35.3-44.9); Hemoglobin 7.8 g/dL (11.5-15.4); Immature Granulocytes % 0.6 % (0-4); Lymphocytes # 0.7 K/mcL (0.6-4.6); Lymphocytes % 15.5 %; Mean Corpuscular HGB Conc 30.8 g/dL (31.6-35.5); Mean Corpuscular Hemoglobin 33.8 pg (28.0-33.3); Mean Corpuscular Volume 109.5 fL (83.0-100.0); Mean Platelet Volume 10.5 fL (9.4-12.4); Monocytes # 0.4 K/mcL (0.0-1.3); Neutrophils # 3.4 K/mcL (1.6-8.9); Platelet Count 198 K/mcL (140-400); Red Blood Count 2.31 M/mcL (3.82-4.97); Red Cell Distribution Width 22.2 % (11.5-14.5); Segmented Neutrophils % 73.4 %
[2016-07-11] MEDS ORDERED: Magnesium Sulfate 2 GM in D5% in Water 100 ML IVPB ONE (08:21)
[2016-07-11] MEDS: amLODIPine 5 MG TABLET PO SCH (09:27)
[2016-07-11] MEDS: Fenofibrate 54 MG TABLET PO SCH (09:27)
[2016-07-11] MEDS: Furosemide 20 MG TABLET PO SCH (09:27)
[2016-07-11] MEDS: Folic Acid 1 MG TABLET PO SCH (09:27)
[2016-07-11] MEDS: Cyanocobalamin (B-12) 1,000 MCG TABLET PO SCH (09:27)
[2016-07-11 12:18] VITALS: BP 130/75
--- NOTE | 2016-07-11 15:16 | Discharge Summary ---
Date of Encounter: 07/11/16 Time of Encounter: 15:12 - Discharge Diagnosis (1) Symptomatic anemia Priority: Primary Status: Acute (2) Altered mental status Priority: Primary Status: Resolved Qualifiers: Altered mental status type: unspecified Qualified Code(s): R41.82 - Altered mental status, unspecified (3) CHF (congestive heart failure) Priority: Secondary Status: Acute Qualifiers: Congestive heart failure type: diastolic Congestive heart failure chronicity: unspecified congestive heart failure chronicity Qualified Code(s) : I50.30 - Unspecified diastolic (congestive) heart failure (4) Hx of chronic kidney disease Priority: Secondary Status: Chronic (5) HTN (hypertension) Priority: Secondary Status: Chronic Qualifiers: Hypertension type: essential hypertension Qualified Code(s): I10 - Essential (primary) hypertension (6) DVT prophylaxis Priority: Secondary Status: Acute (7) Edema of right lower extremity Priority: Secondary Status: Chronic - Discharge Medications Prescriptions: Furosemide [Lasix] 20 mg PO BIDDIURETIC #60 tablet Home Medications: Amlodipine [Norvasc] 10 mg PO DAILY 01/10/16 [History] Fenofibrate 160 mg PO DAILY 01/10/16 [History] Melatonin 5 mg PO HS 01/10/16 [History] Cholecalciferol (Vitamin D3) [Vitamin D3] 50,000 unit PO QWEEK 03/21/16 [History ] Folic Acid 1 mg PO DAILY #90 tablet 03/26/16 [Rx] Ondansetron ODT [Zofran ODT] 4 mg SL Q8H PRN 05/02/16 [History] Cyanocobalamin (B-12) [Vitamin B12] 1,000 mcg PO DAILY #90 tablet 06/17/16 [Rx] Darbepoetin Christopher in Polysorbat [Aranesp] 200 mcg IJ Q2W 07/08/16 [History] Docusate [Colace] 100 mg PO DAILY PRN 07/08/16 [History] Mirtazapine 7.5 mg PO HS 07/08/16 [History] Furosemide [Lasix] 20 mg PO BIDDIURETIC #60 tablet 07/11/16 [Rx] Allergies/Adverse Reactions: Allergies lorazepam [From Ativan] Allergy (Verified 06/03/16 10:20) Hallucinating Date of admission: 07/10/16 13:48 Primary care physician: oJse Olson, Consults: Cardiology: Dr. Arriaza Discharging clinician: Nona Sanches Anticipated date of discharge: 07/11/16 - Patient Status Disposition: Home Health Service Condition: Good Functional capacity at discharge: uses cane/walker Overall status at discharge: patient is back to baseline - Discharge Instructions Follow Up With: Jose Olson MD [Primary Care Provider] - 07/17/16 10:45 am (Please follow up as schedule...) Additional Instructions: Please follow-up with your primary care physician and weather algorithm scientist within 5 days after her discharge from the hospital. Please follow-up with your survey supervisor within 2-3 weeks after your discharge from the hospital. Lasix 20 mg twice a day has been added to your home medications, please take this medication as prescribed. Please resume all other home medications as prescribed by your primary care physician. - Diet and Activity Activity: as per physical therapy Diet: low salt diet Hospital course: Ms. Otoole is a 81 year old female with past medical history of stage IV CJD, hypertension, depression, renal stones, anemia who was admitted for management of symptomatic anemia and change in mental status. Patient was transferred to the hospital from her weather algorithm scientist's office due to hemoglobin of 5.3. She received 2 units of PRBC in the ER with improvement in her symptoms. She was also reported to have exertional dyspnea with bilateral lower extremity edema for which she had a 2-D echo done. Echocardiogram demonstrated severe aortic stenosis and diastolic dysfunction. Cardiology was consulted and outpatient follow-up was recommended. Patient was started on low-dose diuretic therapy which she is tolerating well. At this time patient is hemodynamically stable, H &H within acceptable range, and mental status at baseline as per family (son/POA ). Patient was evaluated by physical therapy and home health was recommended. Patient will be discharged to home with home health. She is to follow up with primary care physician, nephrology, and cardiology after discharge. - Time Spent with Patient Total time spent providing and/or coordinating discharge services: Greater than 30 minutes - Constitutional Vitals: Temp Pulse Resp BP Pulse Ox 98.1 F 81 16 130/75 93 07/11/16 12:11 07/11/16 12:11 07/11/16 12:11 07/11/16 12:11 07/11/16 12:11 General appearance: Present: A&O X 1 (at baseline as per son), no acute distress , answers questions appropriately - Head Head exam: Present: atraumatic, normocephalic - Eye Eye exam: Present: normal appearance, conjuntiva pink, sclera anicteric - Respiratory Respiratory exam: Present: CTAB. Absent: respiratory distress, wheezes - Cardiovascular Cardiovascular exam: Present: RRR, +S1, +S2 - GI/Abdominal GI/Abdominal exam: Present: normal bowel sounds, soft. Absent: distended, tenderness - Extremities Exam Extremities exam: Present: pedal edema, warm, radial pulses palpable and symetrical. Absent: calf tenderness - Neurological Exam Neurological exam: Present: alert - Psychiatric Psychiatric exam: Present: normal affect, normal mood - VTE Documentation of Mechanical Device: Intermittent pneumatic compression device
--- NOTE | 2016-07-11 15:23 | Physician Discharge Referral ---
Home Health/Hosp Referral Info Transfer to: Home Health - Diagnosis (1) Symptomatic anemia Priority: Primary Status: Acute (2) Altered mental status Priority: Primary Status: Resolved (3) CHF (congestive heart failure) Priority: Secondary Status: Acute (4) Hx of chronic kidney disease Priority: Secondary Status: Chronic (5) HTN (hypertension) Priority: Secondary Status: Chronic (6) DVT prophylaxis Priority: Secondary Status: Acute (7) Edema of right lower extremity Priority: Secondary Status: Chronic - Respiratory Orders Smoking Cessation: Smoking cessation has been advised. For more information, call the [place] Tobacco Quit Line at 2-935-FMRSNOW. - Services Needed Following services are medically necessary services: Nursing, Home Health Aide, Physical Therapy, Occupational Therapy - Transfer Medications Prescriptions: Furosemide [Lasix] 20 mg PO BIDDIURETIC #60 tablet Home Medications: Amlodipine [Norvasc] 10 mg PO DAILY 01/10/16 [History] Fenofibrate 160 mg PO DAILY 01/10/16 [History] Melatonin 5 mg PO HS 01/10/16 [History] Cholecalciferol (Vitamin D3) [Vitamin D3] 50,000 unit PO QWEEK 03/21/16 [History ] Folic Acid 1 mg PO DAILY #90 tablet 03/26/16 [Rx] Ondansetron ODT [Zofran ODT] 4 mg SL Q8H PRN 05/02/16 [History] Cyanocobalamin (B-12) [Vitamin B12] 1,000 mcg PO DAILY #90 tablet 06/17/16 [Rx] Darbepoetin Christopher in Polysorbat [Aranesp] 200 mcg IJ Q2W 07/08/16 [History] Docusate [Colace] 100 mg PO DAILY PRN 07/08/16 [History] Mirtazapine 7.5 mg PO HS 07/08/16 [History] Furosemide [Lasix] 20 mg PO BIDDIURETIC #60 tablet 07/11/16 [Rx] Allergies/Adverse Reactions: Allergies lorazepam [From Ativan] Allergy (Verified 06/03/16 10:20) Hallucinating Certification: Further, I certify that my clinical findings support that this patient is homebound (i.e. absences from home require considerable and taxing effort and are for medical reasons or islam services or infrequently or short duration when for other reasons) because: Homebound Reason: Patient requires assistance of a person or device to safely leave home Attestation: My signature below is to certify that this patient is under my care and that I, or nurse practitioner, or a physician's clinic assistant working with me, has a face-to -face encounter with this patient.
== END 2016-07-11 16:41 | disposition home health service (06) | DRG 811 ==
LOC: 2ANU 15:59 → EMEROO 15:59 → SUATTDRO 20:59 → 2ANU 22:00
PROVIDERS: ADMIT Internal Medicine; ATTEND Internal Medicine